=== PATIENT | female | born 1940 | race Caucasian/White ===

== ENCOUNTER 2016-11-11 23:10 | Inpatient (IN) | payer MEDICARE, OTHER ==
--- NOTE | ~2016-11-11 | DS ---
Discharge Summary [facility] [id number] [place]. [address] NAME: VAHE MITCHELL : 42 STATUS : DIS IN PAT#: [id number] AGE: 76 ADM/REG DATE : 11/12/16 MR#: [id number] REPORT SERV DATE: 11/23/16 DICTATED BY: GHULAM RUDOLPH DATE: 11/22/16 REPORT STATUS : Draft TRANSCRIBED BY: MARCIAL DATE: 11/22/16 Data Collection from hospitalization DISCHARGE DIAGNOSIS(ES): 1. Complex right distal femur fracture above the total knee. 2. History of Parkinson's. 3. Diabetes mellitus type 2. 4. Recurrent falls. 5. Acute blood loss anemia. 6. Neuropathy. 7. Confusion, resolved. CONSULTATIONS: Marycarmen Muñiz NP PROCEDURES PERFORMED: 1. Open reduction and internal fixation, femur fracture, and liner exchange on the right, 11/12/2016. 2. CT of the brain without contrast, 11/14/2016. PATHOLOGY: Bone soft tissue and hardware, right knee joint arthroplasty, acute inflammation, greater than 30 neutrophils per high-powered field. Orthopedic hardware, gross diagnosis. MEDICATIONS: Aspirin 81 mg at bedtime, Sinemet 25/100 two tablets three times a day, Neurontin 300 mg three times daily, Theragran tablet one with breakfast, Mirapex 0.125 mg three times a day, Coumadin sliding scale as directed, Tylenol 650 mg every four hours as needed, Mylanta 30 mL as needed, Refresh one drop each eye three times daily as needed, Dulcolax 15 mg as needed orally, Imodium 2 mg every 6 hours as needed, milk of magnesia 30 mL as needed, Zofran 4 mg every four hours as needed, MiraLAX powder one packet twice daily as needed, Ultram 50 mg every four hours as needed, Systane one drop each eye three times daily as needed, and Proventil 3 mL every two hours as needed. CONDITION AT DISCHARGE: Upon discharge, she did appear to be doing well and had no complaints. DISPOSITION: She had been discharged with transfer to [facility]. She was to continue an ADA diet with physical therapy and occupational therapy as directed. She was to follow up with me as instructed. HOSPITAL COURSE: This 76-year-old female was well known to me years ago. She had a right total knee arthroplasty. She walks with a walker and had severe Parkinson disease. She had also had a previous IM nailing in the right femur. She had tripped going out from the kitchen to the bedroom the evening prior to admission and injured her right distal femur. She denied any pain or injury elsewhere. She had no associated loss of consciousness, shortness of breath, chest pain, etc. She was admitted for further treatment. Upon admission to the hospital, she had been placed on an n.p.o. diet. She was begun on Zofran at 4 mg IV every 4 hours as needed, Ativan 0.5 mg IV every two hours as needed for muscle spasms as well as morphine 2 to 4 mg IV every three hours as needed for pain. She had also been placed on electrolyte replacement protocol. She had been taken to the operating room Discharge [address] [address] NAME: VAHE MITCHELL : 42 STATUS : DIS IN PAT#: [id number] AGE: 76 ADM/REG DATE : 11/12/16 MR#: [id number] REPORT SERV DATE: 11/23/16 DICTATED BY: GHULAM RUDOLPH DATE: 11/22/16 REPORT STATUS : Draft TRANSCRIBED BY: MARCIAL DATE: 11/22/16 on the day of admission where she did undergo the above procedure. She did tolerate this well and was transferred to the recovery room. She had also been seen by Marycarmen Muñiz for medical management and she did agree with current treatment plan. On postop day #1, she did appear to be doing well. She did have complaints of pain at a 6/10 on the right lower extremity for several hours. She had demonstrated a poor understanding of her home medications and had been weaning Sinemet. She had been placed on sliding scale insulin for her diabetes. She had also been evaluated by Physical Therapy. On postop day #2, she had been evaluated by Speech and Language Pathology and did undergo a bedside swallowing evaluation and she revealed no overt signs or symptoms of aspiration. It was however recommended that she undergo a modified barium swallow study for further evaluation as she did have a history of Parkinson disease. She continued to mobilize with Physical Therapy on postop day #2. On postop day #3, she was noted to be crying and did have complaints of spasms on the top of her leg. Her hemoglobin was at 8.9, hematocrit 26.6. Adjustments were made in her medications. She had also undergone a CT of the brain without contrast secondary to some confusion, which was noted to have been unremarkable. She was alert and oriented x3. She was able to answer most questions appropriately. On 11/16/2016, she was afebrile and her vital signs had remained stable. She had been continued on physical therapy. She was noted to have some confusion and did think that she was at her sister's house and did state that she did not want the nurses to touch her or help her. She did remain in stable condition, and on 11/17/2016, was noted to be doing well and was much better in regard to her confusion. As she continued to do well, she was then discharged with the above instructions. Information collected by: Lyn Gamble. I submit the above information as my discharge summary. OLVIN/MARCIAL Carine Rudolph M.D. / [id number] CC: Carine Rudolph M.D. [facility] Jazmyne Lema M.D.
--- NOTE | ~2016-11-11 | HP ---
History And Physical [address] [place] [facility] [place] [address] NAME: VAHE MITCHELL : 42 STATUS : ADM Qing PAT#: [id number] AGE: 76 ADM/REG DATE : 11/11/16 MR#: [id number] REPORT SERV DATE: 11/12/16 DICTATED BY: GHULAM RUDOLPH DATE: 11/12/16 REPORT STATUS : Draft TRANSCRIBED BY: MARCIAL DATE: 11/12/16 DATE OF ADMISSION: 11/11/2016 CHIEF COMPLAINT: Right knee pain. HISTORY: 76-year-old female, well known to [place] years ago, had a right total knee arthroplasty. She walks with a walker and has severe Parkinson disease. She has also had a previous IM nailing in that right femur. She tripped going out from the kitchen to the bedroom last night and injured her right distal femur. She denies pain or injury elsewhere. No associated loss of consciousness, shortness of breath, chest pain, etc. ALLERGIES: NONE. MEDICATIONS: See chart. PAST MEDICAL HISTORY: Severe Parkinson disease for which she sees Dr. Corrina Gutierrez. Hypertension, hypercholesterolemia, chronic back and knee pain. PAST SURGICAL HISTORY: Hysterectomy in 1972, tonsillectomy, right leg fracture, lumbar spine surgery, kyphoplasty, LESI several years ago, knee replacement in 2011. SOCIAL HISTORY: No cigarettes, alcohol, or illicit drug use. FAMILY HISTORY: No anesthetic complications. REVIEW OF SYSTEMS: Otherwise, negative except as above. PHYSICAL EXAMINATION: GENERAL: Alert and oriented x3, in no apparent distress. Difficult speech due to her Parkinson's. HEENT: Atraumatic, normocephalic. NECK: Supple. CHEST: Symmetric. LUNGS: Per AA evaluation. CV: Regular. ABDOMEN: Soft. No mass. EXTREMITIES: Both upper extremities and left lower extremity without acute trauma. Right knee with obvious deformity. Skin is intact. Compartment supple. Somewhat thready pulses. NEURO: Somewhat difficult to evaluate with her Parkinson's, but appears to be symmetric without center motor deficit. X-RAY: Complex right supracondylar periprosthetic femur fracture above a total knee and distal to an IM nail. ASSESSMENT: Complex right distal femur fracture above a total knee and distal to an IM nail. History And Physical [address] [place]. [address] NAME: VAHE MITCHELL : 42 STATUS : ADM Qing PAT#: [id number] AGE: 76 ADM/REG DATE : 11/11/16 MR#: [id number] REPORT SERV DATE: 11/12/16 DICTATED BY: GHULAM RUDOLPH DATE: 11/12/16 REPORT STATUS : Draft TRANSCRIBED BY: MODL DATE: 11/12/16 PLAN: ORIF versus arthroplasty. I have discussed with her at length. I will attempt to put this back together, but it may require knee revision type surgery. I have discussed risks, benefits, etc. The patient wishes to proceed. WTB/MODL Carine Rudolph M.D. / [id number] CC: Carine Rudolph M.D.
--- NOTE | ~2016-11-11 | OP ---
Record Of Operation [facility] [address] [place]. [address] NAME: VAHE MITCHELL : 42 STATUS : DIS IN PAT#: [id number] AGE: 76 ADM/REG DATE : 11/12/16 MR#: [id number] REPORT SERV DATE: 11/22/16 DICTATED BY: GHULAM SANCHEZ DATE: 11/22/16 REPORT STATUS : Draft TRANSCRIBED BY: MODMoses DATE: 11/22/16 DATE OF PROCEDURE: 11/12/2016 PREOPERATIVE DIAGNOSIS: Right periprosthetic femur fracture above total knee. POSTOPERATIVE DIAGNOSIS: Right periprosthetic femur fracture above total knee. PROCEDURE: Open reduction and internal fixation. CONSULTANT IN ERGONOMICS AND SAFETY: See chart. DESCRIPTION OF PROCEDURE: The patient was taken to the operating room and placed supine on the table in normal fashion without incident. General anesthetic was induced per the anesthesiologist. The patient was carefully positioned, padded, prepped, and draped in normal sterile fashion. Sharp dissection was made through a midline longitudinal incision with electrocautery through the fat. Soft tissue dissection was done to elevate subperiosteally onto the lateral tissue. There was severe comminution of the supracondylar and distal metaphyseal femoral bone. The joint itself appeared to be intact. I obtained reduction and held with a plate, a 10 plate, and chose a plate. It was held to the femoral holding in reduced position using the triangles for support. This was fixed with multiple screws using the locking screw guide distally and a combination locking and/or conventional locking screws proximally with the guides. The screws were tightened that gave excellent fixation. A DBX-type bone graft matrix was packed into the comminuted distal supracondylar region. Wound was irrigated, closed, and dressed sterilely. I checked to make sure there was good patellar tracking and excellent medial and lateral balance. COMPLICATIONS: None. SPECIMENS: None. ESTIMATED BLOOD LOSS: About 100 mL. WTB/MODL Carine Sanchez M.D. / [id number] CC: Carine Sanchez M.D. UNKNOWN
--- NOTE | ~2016-11-11 | CN ---
Consultation Report [facility] [address] [place]. [address] NAME: VAHE MITCHELL : 42 STATUS : ADM Qing PAT#: [id number] AGE: 76 ADM/REG DATE : 11/11/16 MR#: [id number] REPORT SERV DATE: 11/12/16 DICTATED BY: DATE: REPORT STATUS : Draft TRANSCRIBED BY: MODL DATE: 11/12/16 CONSULTATION DATE OF CONSULTATION: 11/12/2016 REASON FOR CONSULTATION: Medical management. IDENTIFYING DATA: 1. PCP is Dr. Aric Rosa. 2. Neurology is Dr. Corrina Gutierrez. 3. Cardiology is Dr. Lovett. 4. Ortho hip is Dr. Stroud. HISTORY OF PRESENT ILLNESS: This is a 76-year-old female, well known to Dr. Sanchez. Please refer to Dr. Sanchez's H and P dated 11/11/2016 for complete details regarding the patient's admission. In brief, the patient was admitted by Dr. Sanchez for a traumatic fall that resulted in a right knee injury of a previous right total knee. The patient is postop day 0 for an open reduction and internal fixation of right periprosthetic femur fracture. The patient's history was obtained through careful interview with the patient's spouse by phone, coupled with review in [employer] and [employer]. 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 She was admitted earlier today for surgery. The patient also has a history of osteoporosis, osteoarthritis, and recurrent falls. According to the patient's , she has been weaning herself off her Sinemet due to foot numbness and gait disturbance. He is not responsible for giving her her medications and question whether the patient has been weaning herself off her Mirapex versus her Sinemet. He has no idea of what time she takes her medications or which medications she currently takes. Unable to have interview with the patient secondary to her clinical status and lack of verbal response at this point. PAST MEDICAL HISTORY: Sinus problems, hyperlipidemia, chronic back and knee pain, GERD, incontinence, [id number] diabetes mellitus, Parkinson's, hypertension, history of recurrent falls, recurrent syncope, irritable bowel syndrome, osteoarthritis, osteoporosis. HOME MEDICATIONS: Aspirin 81 mg daily, Sinemet 25/100 two tablets three times daily, Neurontin 300 mg three times daily, Systane three times daily in both eyes for dryness, Mirapex 0.125 mg p.o. three times daily. ALLERGIES: THE PATIENT HAS NO KNOWN DRUG ALLERGIES. SOCIAL HISTORY: The patient lives with her spouse. She uses a walker for ambulation. The patient does have occasional falls. Denies alcohol, illicit drug use, or tobacco abuse. The patient is retired. FAMILY HISTORY: [facility] as well as the . Consultation Report [address] [place]. [address] NAME: VAHE MITCHELL : 42 STATUS : ADM Qing PAT#: [id number] AGE: 76 ADM/REG DATE : 11/11/16 MR#: [id number] REPORT SERV DATE: 11/12/16 DICTATED BY: DATE: REPORT STATUS : Draft TRANSCRIBED BY: MODMoses DATE: 11/12/16 Parents of MIs, history of hypertension, coronary artery disease. Brother of heart problems. PAST SURGICAL HISTORY: Right total knee arthroplasty, total abdominal hysterectomy, cholecystectomy, right shoulder fracture and repair, tonsillectomy, lumbar spine surgery in 2011, kyphoplasty in 2012, LESI, right intramedullary nail of the femur, pacemaker insertion, cataract extraction of the right eye, and repair of redness on the right eye. REVIEW OF SYSTEMS: A full 10-point review of systems obtained. Pertinent positives are mentioned in the HPI. Unable to get subjective information due to clinical status. PHYSICAL EXAMINATION: VITAL SIGNS: Blood pressure 128/53, O2 saturation is 96% on 2 L nasal cannula, temperature is 98.1, respirations are 16, heart rate is 60. GENERAL: Elderly female, resting in bed, in no acute distress. NEURO: Head is atraumatic, normocephalic. Face is mask-like. Right pupil is 5 to 5.5 mm and irregular, left pupil is approximately 3 mm and reactive to light. The patient is able to respond to request for hand grasp, flutters lids when persistently asked her name, but did not open eyes. NECK: Supple with no obvious lymphadenopathy or thyromegaly. Neck veins are flat. EENT: Sclerae are nonicteric. Mucous membranes are moist. Unable to evaluate extraocular muscles at this time due to patient's sedation. CHEST: The patient has a left pacemaker pocket. LUNGS: The patient unable to take deep breaths on command. Has normal respiratory effort, is decreased throughout. CARDIOVASCULAR: The patient has a paced rhythm with no obvious murmurs, rubs, or gallops. Carotids with no obvious bruits. ABDOMEN: Soft. Bowel sounds are absent. No palpable organomegaly. Last bowel movement was 11/11/2016. EXTREMITIES: No significant edema, clubbing, or cyanosis. Right foot is turned inward. Pedal pulses are present and equal bilaterally. Surgical wound site dressing is dry and intact to right lower extremity with a brace and a Doris drain with serosanguineous drainage. SKIN: Warm and dry with no unusual rashes or skin lesions with normal color and turgor. Of note, the patient does have yeast under bilateral breasts. LABORATORY DATA: I am awaiting current labs postoperatively. Labs from 11/11/2016, sodium was 141, potassium is 4.3, chloride is 106, CO2 is 24, BUN is 24, creatinine is 0.84, GFR is 68, glucose 173, calcium is 8.3, magnesium is 2.2. Troponin was less than 0.02. Her UA per Rooney with glucose of 50, ketones of 5, hyaline casts of 3, RBC 1, WBC 1. ASSESSMENT AND PLAN: 1. Traumatic fall with traumatic knee injury, postop day 0 of open reduction and internal fixation of right periprosthetic femur fracture. Consultation Report [facility] [id number] [facility] [place]. [address] NAME: VAHE MITCHELL : 44 STATUS : ADM Qing PAT#: [id number] AGE: 76 ADM/REG DATE : 11/11/16 MR#: [id number] REPORT SERV DATE: 11/12/16 DICTATED BY: DATE: REPORT STATUS : Draft TRANSCRIBED BY: MODL DATE: 11/12/16 2. Parkinson disease. We are resuming the patient's carbidopa/levodopa. We are ordering speech therapy for swallow eval. Spouse has stated the patient was weaning herself off these medications due to foot numbness and he thought that maybe she was taking this medication b.i.d. We will readdress with patient in the morning. 3. Sedation. At this time, the patient is unable to take p.o. Coumadin, so the patient will be getting Lovenox 40 mg today and will start Coumadin dosing tomorrow unless able to take Coumadin tonight. We are placing the patient on continuous pulse ox due to sedation and giving the patient EzPAP q.4 hours. The patient is placed on aspiration precautions due to Parkinson disease and sedation. 4. History of diabetes mellitus type 2. Spouse denies that she has this problem. We are placing the patient on sliding scale level 1 with blood sugars a.c. and at bedtime. We are ordering a hemoglobin A1c in the morning. The patient also had glucose of 50 and ketones of 5 in her urine. 5. Chronic irritable bowel syndrome. We will be monitoring this. According to the , the patient takes no medication for this problem. 6. Decreased mobility. We have ordered Lovenox x1 dose until the patient is able to start her Coumadin therapy. The patient is also having bilateral BRANDON hose. 7. History of hypertension. We will order hydralazine p.r.n. 8. History of syncope and pacemaker. We are having interrogation of pacemaker. We would like to take the time to thank you for this consultation. We will continue to follow the patient with you until it is time for her to be discharged. Please let us know if we can be of any further assistance. SLC/MODL Marycarmen Muñiz NP / [id number] CC: Carine Sanchez M.D.
[~2016-11-11 23:10] MED LIST: ALTA5 PO; AMARYL1 MG PO; AMARYL2 PO; ASAB PO; CELEBREX1 PO; CRESTOR5 MG PO; DIL4TAB PO; HALF81 PO; LEVSIN PO; LO-DOSE ASPIRIN81 M1 PO; LODOSYN; MIRAPEX125 PO; MIRAPEX250 PO; NEUR300 PO; PREDMILDOP OPH; SIN25 PO; SYSTANE OP; TYLENOL #3; ULTRAM50 PO
[2016-11-12 09:26] LABS: BASOPHILS 0.1 %; BASOPHILS ABSOLUTE 0.01 10/3/uL (0.0-0.16); EOSINOPHILS 0.7 %; EOSINOPHILS ABSOLUTE 0.06 10/3/uL (0.0-0.53); IMMATURE GRANULOCYTES 0.4 %; IMMATURE GRANULOCYTES ABSOLUTE 0.03 10/3/uL (0.0-0.11); LYMPHOCYTES 20.5 %; LYMPHOCYTES ABSOLUTE 1.71 10/3/uL (0.67-4.30); MEAN PLATELET VOLUME 9.5 fL (9.2-13.0); MONOCYTES 9.3 %; MONOCYTES ABSOLUTE 0.78 10/3/uL (0.21-1.20); NEUTROPHILS ABSOLUTE 5.76 10/3/uL (2.02-8.40); PLATELET COUNT 195 10/3/uL (150-400); RBC DISTRIBUTION WIDTH 14.3 % (12.0-16.0); RED CELL COUNT 3.75 10/6/uL (4.0-5.6); WHITE BLOOD CELLS 8.4 10/3/uL (4.5-10.5)
[2016-11-12 09:27] LABS: HEMATOCRIT 35.3 % (36.0-48.0); MANUAL DIFF NO %; MEAN CORPUSCULAR VOLUME 94.1 fL (80-100)
[2016-11-12 09:32] LABS: INTERNATIONAL NORMAL RATI 1.2 UNITS (-); PARTIAL THROMBO TIME 29.7 SEC (22.5-37.2); PROTIME (NOT ORD) 14.8 SEC (12.0-14.5)
[2016-11-12 17:49] LABS: BASOPHILS 0.1 %; BASOPHILS ABSOLUTE 0.01 10/3/uL (0.0-0.16); EOSINOPHILS 0.1 %; EOSINOPHILS ABSOLUTE 0.01 10/3/uL (0.0-0.53); HEMATOCRIT 33.1 % (36.0-48.0); HEMOGLOBIN 11.1 g/dL (12.0-16.0); IMMATURE GRANULOCYTES 0.5 %; IMMATURE GRANULOCYTES ABSOLUTE 0.06 10/3/uL (0.0-0.11); LYMPHOCYTES 6.7 %; LYMPHOCYTES ABSOLUTE 0.85 10/3/uL (0.67-4.30); MEAN CORPUS HGB CONC 33.5 g/dL (32.0-36.0); MEAN CORPUSCULAR HEMOGLOB 32.3 pg (26.0-34.0); MEAN CORPUSCULAR VOLUME 96.2 fL (80-100); MEAN PLATELET VOLUME 9.8 fL (9.2-13.0); MONOCYTES 11.2 %; MONOCYTES ABSOLUTE 1.41 10/3/uL (0.21-1.20); NEUTROPHILS 81.4 %; NEUTROPHILS ABSOLUTE 10.26 10/3/uL (2.02-8.40); PLATELET COUNT 188 10/3/uL (150-400); RBC DISTRIBUTION WIDTH 14.4 % (12.0-16.0); RED CELL COUNT 3.44 10/6/uL (4.0-5.6)
[2016-11-12 17:58] LABS: MANUAL DIFF NO %; WHITE BLOOD CELLS 12.6 10/3/uL (4.5-10.5)
[2016-11-12 18:02] LABS: A/G RATIO 0.9 (0.7-1.9); ALBUMIN 3.2 G/DL (3.5-5.0); BUN (BLOOD UREA NITROGEN) 24 MG/DL (6-23); CALCIUM, SERUM 8.1 MG/DL (8.5-10.4); CHLORIDE, SERUM 108 MMOL/L (96-112); CREATININE 0.85 MG/DL (0.55-1.02); GFR AFRICAN AMERICAN 78 ML/MIN (>=60); GFR NON AFRICAN AMERICAN 67 ML/MIN (>=60); GLOBULIN 3.4 G/DL (2.5-4.1); GLUCOSE, SERUM 182 MG/DL (60-99); POTASSIUM, SERUM 4.5 MMOL/L (3.5-5.3); SGOT(AST) 102 U/L (5-40); SGPT(ALT) 20 U/L (5-65); SODIUM, SERUM 146 MMOL/L (135-148); TOTAL BILIRUBIN 0.8 MG/DL (0-1.2); TOTAL PROTEIN 6.6 G/DL (6.0-8.5)
[2016-11-12 18:03] LABS: ALKALINE PHOSPHATASE 117 U/L (45-117); CO2 (CARBON DIOXIDE) 29 MMOL/L (24-34)
[2016-11-13 05:02] LABS: HEMATOCRIT 31.8 % (36.0-48.0); HEMOGLOBIN 10.5 g/dL (12.0-16.0); MEAN CORPUSCULAR HEMOGLOB 32.6 pg (26.0-34.0); MEAN CORPUSCULAR VOLUME 98.8 fL (80-100); MEAN PLATELET VOLUME 10.2 fL (9.2-13.0); PLATELET COUNT 198 10/3/uL (150-400); RBC DISTRIBUTION WIDTH 14.3 % (12.0-16.0); RED CELL COUNT 3.22 10/6/uL (4.0-5.6); WHITE BLOOD CELLS 11.6 10/3/uL (4.5-10.5)
[2016-11-13 05:03] LABS: MANUAL DIFF YES %
[2016-11-13 05:07] LABS: INTERNATIONAL NORMAL RATI 1.2 UNITS (-); PROTIME (NOT ORD) 15.3 SEC (12.0-14.5)
[2016-11-13 05:13] LABS: BUN (BLOOD UREA NITROGEN) 25 MG/DL (6-23); CALCIUM, SERUM 7.8 MG/DL (8.5-10.4); CHLORIDE, SERUM 106 MMOL/L (96-112); CO2 (CARBON DIOXIDE) 31 MMOL/L (24-34); CREATININE 1.01 MG/DL (0.55-1.02); GFR AFRICAN AMERICAN 64 ML/MIN (>=60); GFR NON AFRICAN AMERICAN 55 ML/MIN (>=60); GLUCOSE, SERUM 171 MG/DL (60-99); POTASSIUM, SERUM 4.4 MMOL/L (3.5-5.3); SODIUM, SERUM 141 MMOL/L (135-148)
[2016-11-13 05:39] LABS: BAND NEUTROPHILS 3 %; LYMPHOCYTES 8 %; LYMPHOCYTES ABSOLUTE (CALC) 0.93 10/3/uL (0.67-4.30); MONOCYTES 10 %; MONOCYTES ABSOLUTE (CALC) 1.16 10/3/uL (0.21-1.20); NEUTROPHILS ABSOLUTE (CALC) 9.51 10/3/uL (2.02-8.40); SEGMENTED NEUTROPHIL (0) 79 %; TOTAL NUCLEATED CELLS 100
[2016-11-13 05:40] LABS: PLATELET ESTIMATE ADQ (ADEQUATE); RBC MORPHOLOGY NORM (NORMAL)
[2016-11-14 04:26] LABS: BASOPHILS 0.1 %; BASOPHILS ABSOLUTE 0.01 10/3/uL (0.0-0.16); EOSINOPHILS 1.2 %; EOSINOPHILS ABSOLUTE 0.11 10/3/uL (0.0-0.53); IMMATURE GRANULOCYTES 0.3 %; IMMATURE GRANULOCYTES ABSOLUTE 0.03 10/3/uL (0.0-0.11); LYMPHOCYTES 12.4 %; LYMPHOCYTES ABSOLUTE 1.12 10/3/uL (0.67-4.30); MEAN CORPUS HGB CONC 33.7 g/dL (32.0-36.0); MEAN CORPUSCULAR HEMOGLOB 32.6 pg (26.0-34.0); MEAN CORPUSCULAR VOLUME 96.7 fL (80-100); MEAN PLATELET VOLUME 9.8 fL (9.2-13.0); MONOCYTES ABSOLUTE 1.27 10/3/uL (0.21-1.20); PLATELET COUNT 166 10/3/uL (150-400); RBC DISTRIBUTION WIDTH 14.4 % (12.0-16.0); RED CELL COUNT 2.76 10/6/uL (4.0-5.6)
[2016-11-14 04:27] LABS: HEMATOCRIT 26.7 % (36.0-48.0); MANUAL DIFF NO %
[2016-11-14 04:31] LABS: INTERNATIONAL NORMAL RATI 1.2 UNITS (-)
[2016-11-14 04:37] LABS: CALCIUM, SERUM 8.2 MG/DL (8.5-10.4); CHLORIDE, SERUM 105 MMOL/L (96-112); CO2 (CARBON DIOXIDE) 27 MMOL/L (24-34); CREATININE 0.78 MG/DL (0.55-1.02); GFR AFRICAN AMERICAN 87 ML/MIN (>=60); GFR NON AFRICAN AMERICAN 75 ML/MIN (>=60); GLUCOSE, SERUM 196 MG/DL (60-99); POTASSIUM, SERUM 4.3 MMOL/L (3.5-5.3); SODIUM, SERUM 138 MMOL/L (135-148)
[2016-11-14 04:38] LABS: BUN (BLOOD UREA NITROGEN) 20 MG/DL (6-23)
[2016-11-15 05:52] LABS: HEMATOCRIT 26.6 % (36.0-48.0); HEMOGLOBIN 8.9 g/dL (12.0-16.0)
[2016-11-15 06:01] LABS: INTERNATIONAL NORMAL RATI 1.2 UNITS (-); PROTIME (NOT ORD) 15.3 SEC (12.0-14.5)
[2016-11-15 06:10] LABS: BUN (BLOOD UREA NITROGEN) 17 MG/DL (6-23); CALCIUM, SERUM 8.4 MG/DL (8.5-10.4); CHLORIDE, SERUM 104 MMOL/L (96-112); CO2 (CARBON DIOXIDE) 30 MMOL/L (24-34); CREATININE 0.58 MG/DL (0.55-1.02); GFR AFRICAN AMERICAN 105 ML/MIN (>=60); GFR NON AFRICAN AMERICAN 91 ML/MIN (>=60); GLUCOSE, SERUM 157 MG/DL (60-99); POTASSIUM, SERUM 4.3 MMOL/L (3.5-5.3); SODIUM, SERUM 139 MMOL/L (135-148)
[2016-11-15 18:34] LABS: ASCORBIC ACID (UR NOT ORDER) NEG (NEG); BILIRUBIN, URINE NEGATIVE (NEG); KETONE, URINE NEGATIVE (NEG); LEUKOCYTE ESTERASE(NOT OR NEG (NEG); WBC (NOT ORDERED) (RFLEX) < 1 (0-5)
[2016-11-16 06:12] LABS: INTERNATIONAL NORMAL RATI 1.2 UNITS (-); PROTIME (NOT ORD) 14.9 SEC (12.0-14.5)
[2016-11-17 06:09] LABS: BASOPHILS 0.5 %; BASOPHILS ABSOLUTE 0.03 10/3/uL (0.0-0.16); EOSINOPHILS 3.6 %; EOSINOPHILS ABSOLUTE 0.24 10/3/uL (0.0-0.53); HEMOGLOBIN 9.7 g/dL (12.0-16.0); IMMATURE GRANULOCYTES 1.1 %; IMMATURE GRANULOCYTES ABSOLUTE 0.07 10/3/uL (0.0-0.11); LYMPHOCYTES 15.8 %; LYMPHOCYTES ABSOLUTE 1.04 10/3/uL (0.67-4.30); MEAN CORPUS HGB CONC 33.4 g/dL (32.0-36.0); MEAN CORPUSCULAR HEMOGLOB 32.2 pg (26.0-34.0); MEAN CORPUSCULAR VOLUME 96.3 fL (80-100); MEAN PLATELET VOLUME 9.3 fL (9.2-13.0); MONOCYTES 9.7 %; MONOCYTES ABSOLUTE 0.64 10/3/uL (0.21-1.20); NEUTROPHILS 69.3 %; NEUTROPHILS ABSOLUTE 4.58 10/3/uL (2.02-8.40); RBC DISTRIBUTION WIDTH 13.9 % (12.0-16.0); RED CELL COUNT 3.01 10/6/uL (4.0-5.6); WHITE BLOOD CELLS 6.6 10/3/uL (4.5-10.5)
[2016-11-17 06:10] LABS: MANUAL DIFF NO %; PLATELET COUNT 265 10/3/uL (150-400)
[2016-11-17 06:15] LABS: INTERNATIONAL NORMAL RATI 1.2 UNITS (-); PROTIME (NOT ORD) 14.6 SEC (12.0-14.5)
== END 2016-11-17 14:23 | DRG 481 ==
LOC: 3SO 23:10
PROVIDERS: Internal Medicine; Specialist; Student in an Organized Health Care Education/Training Program
PROC: 0QSB04Z Reposition Right Lower Femur with Internal Fixation Device, Open Approach (ICD-10-PCS; principal; 2016-11-11)
PROC: 2W3QX1Z Immobilization of Right Lower Leg using Splint (ICD-10-PCS; 2016-11-11)
DX: S72.401A Unspecified fracture of lower end of right femur, initial encounter for closed fracture (principal); D62 Acute posthemorrhagic anemia; G20 Parkinson's disease; E11.9 Type 2 diabetes mellitus without complications; I10 Essential (primary) hypertension; K58.9 Irritable bowel syndrome, unspecified; K21.9 Gastro-esophageal reflux disease without esophagitis; W18.30XA Fall on same level, unspecified, initial encounter; Z95.0 Presence of cardiac pacemaker; Z79.82 Long term (current) use of aspirin; Z79.899 Other long term (current) drug therapy
CPT/HCPCS: 36415; 70450; 71010; 73502-RT; 73560-RT; 80048; 80053; 81001; 82962; 83036; 83735; 84484; 85014; 85018; 85025; 85610; 85730; 86850; 86900; 86901; 88300; 88304; 88311; 92610-GN; 93005; 93288; 94640; 94667; 96374; 96375; 96376; 97112-GO; 97162-GP; 97166-GO; 97530-GP; 97535-GO; 99285; A9270-GY; C1713; C1776; G8978-CM-GP; G8979-CK-GP; G8987-CL-GO; G8988-CK-GO; G8996-CI-GN; G8997-CI-GN; G8998-CI-GN; J0690; J1885; J2274; J2405; J2710; J2795; J3010; J3370